=== PATIENT | female | born 1990 | race Caucasian/White ===

== ENCOUNTER 2017-12-27 17:20 | Emergency (ER) | payer SELFPAY ==
[~2017-12-27] VITALS: Ht 157.5 cm; Wt 48.0 kg
[~2017-12-27 17:20] MED LIST: DOCU-138 PO; DOXY150T PO; FERR-63 PO; METH PO; PREN-142 PO
[2017-12-27 22:47] VITALS: BP 122/79
== END 2017-12-27 22:49 | disposition home or self-care (01) ==
LOC: ER 17:20 → EDBD 17:20 → ER 22:49
DX: F41.9 Anxiety disorder, unspecified (principal)
CPT/HCPCS: 93005; 99284